=== PATIENT | female | born 2000 ===

== ENCOUNTER 2024-03-05 13:40 | Emergency (ER) | payer SELFPAY ==
[~2024-03-05] VITALS: Ht 165.1 cm; Wt 95.5 kg
[~2024-03-05 13:40] MED LIST: ZADITOR 5 ML5 ML OP
[2024-03-05 14:56] VITALS: BP 111/71; PULSE 87; TEMP 98
== END 2024-03-05 14:56 | disposition home or self-care (01) ==
LOC: COL.ER 13:40
DX: R04.0 Epistaxis (principal)